=== PATIENT | male | born 1975 | race Caucasian/White ===

== ENCOUNTER 2023-08-22 14:21 | Outpatient (CLI) | payer OTHER | END 2023-08-22 14:30 | disposition home or self-care (01) | LOC: RAD 14:21 | DX: J22 Unspecified acute lower respiratory infection (principal); M99.11 Subluxation complex (vertebral) of cervical region; M99.12 Subluxation complex (vertebral) of thoracic region; M99.13 Subluxation complex (vertebral) of lumbar region; M99.14 Subluxation complex (vertebral) of sacral region; M62.830 Muscle spasm of back; R29.3 Abnormal posture; M53.82 Other specified dorsopathies, cervical region; M53.83 Other specified dorsopathies, cervicothoracic region; M53.86 Other specified dorsopathies, lumbar region ==

== ENCOUNTER 2023-09-12 06:33 | Day surgery (SDC) | payer OTHER ==
[~2023-09-12 06:33] MED LIST: FOLIC ACID1 MG; HYZAAR 100-251 EACH; SYNTHROID150 MCG; TRUVADA 100 MG1 EACH; VITACEL TABLET1 EACH
[2023-09-12] MEDS ORDERED: CEFAZOLIN SODIUM 1,000 MG VIAL IV ONE (13:00)
[2023-09-12] MEDS ORDERED: FAMOTIDINE/PF 20 MG/10 ML SYRINGE IV SCH (14:15)
[2023-09-12] MEDS ORDERED: CEFAZOLIN SODIUM 1,000 MG VIAL IV SCH (14:15)
[2023-09-12] MEDS ORDERED: SUGAMMADEX SODIUM 200 MG/2 ML VIAL IV ONE (14:15)
== END 2023-09-12 16:15 | disposition home or self-care (01) ==
LOC: CIR.AMB 06:33
PROVIDERS: ATTEND Specialist
DX: K42.9 Umbilical hernia without obstruction or gangrene (principal); Z21 Asymptomatic human immunodeficiency virus [HIV] infection status; I10 Essential (primary) hypertension; J45.909 Unspecified asthma, uncomplicated; E03.9 Hypothyroidism, unspecified